=== PATIENT | male | born 1970 | race Caucasian/White ===

== ENCOUNTER → 2019-11-15 08:23 | Outpatient (BNVA) | payer MEDICARE, SELFPAY | PROVIDERS: Family Provider Family Medicine; PCP Family Medicine; Visit Provider Nurse Practitioner | DX: M47.817 Spondylosis without myelopathy or radiculopathy, lumbosacral region (principal); Z79.891 Long term (current) use of opiate analgesic | CPT/HCPCS: 99213 ==

== ENCOUNTER → 2019-12-11 11:25 | Outpatient (BNVA) | payer MEDICARE, SELFPAY | PROVIDERS: Family Provider Family Medicine; PCP Family Medicine; Visit Provider Nurse Practitioner Family | DX: N34.2 Other urethritis (principal) | CPT/HCPCS: 81003; 87491; 87591; 87661 ==

== ENCOUNTER → 2020-01-10 08:08 | Outpatient (BNVA) | payer MEDICARE, SELFPAY | PROVIDERS: Family Provider Family Medicine; PCP Family Medicine; Visit Provider Anesthesiology | DX: G89.29 Other chronic pain (principal); M47.817 Spondylosis without myelopathy or radiculopathy, lumbosacral region; Z79.891 Long term (current) use of opiate analgesic | CPT/HCPCS: 99213; 99214 ==

== ENCOUNTER → 2020-03-06 09:12 | Outpatient (BNVA) | payer MEDICARE, SELFPAY | PROVIDERS: Family Provider Family Medicine; PCP Nurse Practitioner; Visit Provider Nurse Practitioner | DX: G89.29 Other chronic pain (principal); M47.817 Spondylosis without myelopathy or radiculopathy, lumbosacral region; M54.9 Dorsalgia, unspecified; Z79.891 Long term (current) use of opiate analgesic | CPT/HCPCS: 99214 ==

== ENCOUNTER → 2020-04-06 08:01 | Outpatient (BNVA) | payer MEDICARE, SELFPAY | PROVIDERS: Family Provider Family Medicine; PCP Nurse Practitioner; Visit Provider Anesthesiology | DX: G89.29 Other chronic pain (principal); M47.817 Spondylosis without myelopathy or radiculopathy, lumbosacral region; M54.9 Dorsalgia, unspecified; Z79.891 Long term (current) use of opiate analgesic | CPT/HCPCS: 99213; 99214 ==

== ENCOUNTER → 2020-06-13 08:52 | Outpatient (BNVA) | payer MEDICARE, SELFPAY | PROVIDERS: Family Provider Family Medicine; PCP Nurse Practitioner; Visit Provider Anesthesiology | DX: G89.29 Other chronic pain (principal); M54.41 Lumbago with sciatica, right side; M54.42 Lumbago with sciatica, left side; M47.817 Spondylosis without myelopathy or radiculopathy, lumbosacral region; M54.9 Dorsalgia, unspecified; Z79.891 Long term (current) use of opiate analgesic | CPT/HCPCS: 99213; 99214 ==

== ENCOUNTER → 2020-08-10 09:10 | Outpatient (BNVA) | payer MEDICARE, SELFPAY | PROVIDERS: Family Provider Family Medicine; PCP Nurse Practitioner; Visit Provider Anesthesiology | DX: G89.29 Other chronic pain (principal); M47.817 Spondylosis without myelopathy or radiculopathy, lumbosacral region; M54.9 Dorsalgia, unspecified; Z79.891 Long term (current) use of opiate analgesic | CPT/HCPCS: 99213; 99214 ==

== ENCOUNTER → 2020-10-04 08:51 | Outpatient (BNVA) | payer MEDICARE, SELFPAY | PROVIDERS: Family Provider Family Medicine; PCP Nurse Practitioner; Visit Provider Nurse Practitioner | DX: G89.29 Other chronic pain (principal); M47.817 Spondylosis without myelopathy or radiculopathy, lumbosacral region; M54.9 Dorsalgia, unspecified; M54.2 Cervicalgia; F41.1 Generalized anxiety disorder; F43.0 Acute stress reaction; Z79.1 Long term (current) use of non-steroidal anti-inflammatories (NSAID); Z79.891 Long term (current) use of opiate analgesic | CPT/HCPCS: 99213 ==

== ENCOUNTER → 2020-12-13 08:34 | Outpatient (BNVA) | payer MEDICARE, SELFPAY | PROVIDERS: Family Provider Family Medicine; PCP Nurse Practitioner; Visit Provider Nurse Practitioner | DX: G89.29 Other chronic pain (principal); M47.817 Spondylosis without myelopathy or radiculopathy, lumbosacral region; M54.9 Dorsalgia, unspecified; F41.1 Generalized anxiety disorder; F43.0 Acute stress reaction; Z79.1 Long term (current) use of non-steroidal anti-inflammatories (NSAID); Z79.891 Long term (current) use of opiate analgesic | CPT/HCPCS: 99212; 99213 ==

== ENCOUNTER → 2021-02-12 10:26 | Outpatient (BNVA) | payer MEDICARE, SELFPAY | PROVIDERS: Family Provider Family Medicine; PCP Nurse Practitioner; Visit Provider Anesthesiology | DX: G89.29 Other chronic pain (principal); M47.817 Spondylosis without myelopathy or radiculopathy, lumbosacral region; M54.9 Dorsalgia, unspecified; Z79.1 Long term (current) use of non-steroidal anti-inflammatories (NSAID); Z79.891 Long term (current) use of opiate analgesic | CPT/HCPCS: 99213 ==

== ENCOUNTER → 2021-03-06 08:33 | Outpatient (BNVA) | payer MEDICARE, SELFPAY | PROVIDERS: Family Provider Family Medicine; PCP Nurse Practitioner; Visit Provider Anesthesiology | DX: G89.29 Other chronic pain (principal); M47.817 Spondylosis without myelopathy or radiculopathy, lumbosacral region; M54.9 Dorsalgia, unspecified; Z79.899 Other long term (current) drug therapy; Z79.891 Long term (current) use of opiate analgesic | CPT/HCPCS: 99213 ==

== ENCOUNTER → 2021-05-15 07:55 | Outpatient (BNVA) | payer MEDICARE, SELFPAY | PROVIDERS: Family Provider Family Medicine; PCP Nurse Practitioner; Visit Provider Nurse Practitioner | DX: G89.29 Other chronic pain (principal); M47.817 Spondylosis without myelopathy or radiculopathy, lumbosacral region; Z79.1 Long term (current) use of non-steroidal anti-inflammatories (NSAID); Z79.891 Long term (current) use of opiate analgesic | CPT/HCPCS: 99212; 99213 ==

== ENCOUNTER → 2021-07-10 07:55 | Outpatient (BNVA) | payer MEDICARE, SELFPAY | PROVIDERS: PCP Nurse Practitioner; Visit Provider Anesthesiology | DX: G89.29 Other chronic pain (principal); M47.817 Spondylosis without myelopathy or radiculopathy, lumbosacral region; Z79.891 Long term (current) use of opiate analgesic | CPT/HCPCS: 99213 ==

== ENCOUNTER → 2021-08-15 08:31 | Outpatient (BNVA) | payer MEDICARE, SELFPAY | PROVIDERS: PCP Nurse Practitioner; Visit Provider Urology | DX: R39.9 Unspecified symptoms and signs involving the genitourinary system (principal) | CPT/HCPCS: 81003 ==

== ENCOUNTER → 2021-09-11 13:10 | Outpatient (BNVA) | payer MEDICARE, SELFPAY | PROVIDERS: PCP Nurse Practitioner; Visit Provider Anesthesiology | DX: G89.29 Other chronic pain (principal); M47.817 Spondylosis without myelopathy or radiculopathy, lumbosacral region; Z79.899 Other long term (current) drug therapy; Z79.891 Long term (current) use of opiate analgesic; Z87.891 Personal history of nicotine dependence | CPT/HCPCS: 99213 ==

== ENCOUNTER → 2021-11-07 14:09 | Outpatient (BNVA) | payer MEDICARE, SELFPAY | PROVIDERS: PCP Nurse Practitioner; Visit Provider Anesthesiology | DX: G89.29 Other chronic pain (principal); M47.817 Spondylosis without myelopathy or radiculopathy, lumbosacral region; Z79.899 Other long term (current) drug therapy; Z79.891 Long term (current) use of opiate analgesic; Z87.891 Personal history of nicotine dependence | CPT/HCPCS: 99213 ==

== ENCOUNTER 2022-10-28 12:30 | Outpatient (CLI) | payer MEDICARE, SELFPAY | END 2022-10-28 12:31 | disposition home or self-care (01) | LOC: SLEEP 10-29 16:00 | PROVIDERS: PCP Nurse Practitioner; Visit Provider Physician Assistant | DX: G47.10 Hypersomnia, unspecified (principal) | CPT/HCPCS: G0399 ==

== ENCOUNTER 2025-05-12 22:17 | Emergency (ER) | payer MEDICARE, SELFPAY ==
--- OUTSIDE RECORDS SUMMARY | 2025-05-12 22:23 | XMS_ITS | Clinical Summary ---
Author Organization [facility] Andrew shearer Amanda Address [address] [place] [address] Phone Care Team Providers Care Sliver Machine Operator Name Role Phone Jeremiah Baker Primary Care Provider [phone] Allergies Active Allergy Reactions Criticality Noted Date Comments Doxycycline Itching Low 09/22/2018 Paroxetine Hcl Other (See Comments) High 09/22/2018 Made lymph nodes swell up Medications oxyCODONE IR (OXY-IR) 5 mg Capsule Take 10 mg by mouth every 6 hours as needed for Pain. Active traZODone (DESYREL) 50 mg tablet Take 75 mg by mouth daily at bedtime. Active sildenafil (VIAGRA) 25 mg tablet Take 25 mg by mouth 1 time daily as needed for Erectile Dysfunction. Active LORazepam (ATIVAN) 0.5 mg tablet Take 0.5 mg by mouth every 6 hours as needed for Anxiety. Active naproxen (NAPROSYN) 500 mg tablet Take 500 mg by mouth 2 times daily with meals. Active Active Problems Problem Noted Date Diagnosed Date Chronic back pain greater than 3 months duration 09/22/2018 Fibromyalgia 09/22/2018 Primary insomnia 09/22/2018 REGIS (generalized anxiety disorder) 09/22/2018 Social History Tobacco Use Types Packs/Day Years Used Date Smoking Tobacco: Former Cigarettes Q uit: 09/22/1998 Smokeless Tobacco: Never Sex and Gender Information Value Date Recorded Sex Assigned at Not on file Legal Sex Male 3:18 AM OUTSOLE PARAFFINER Gender Identity Not on file Sexual Orientation Not on file Last Filed Vital Signs Vital Sign Reading Time Taken Comments Blood Pressure 122/76 09/22/2018 1:00 PM OUTSOLE PARAFFINER Pulse 82 09/22/2018 1:00 PM OUTSOLE PARAFFINER Temperature 36.8 C (98.2 F) 09/22/2018 1:00 PM OUTSOLE PARAFFINER Respiratory Rate - - Oxygen Saturation - - Inhaled Oxygen Concentration - - Weight 81.2 kg (179 lb) 09/22/2018 1:00 PM OUTSOLE PARAFFINER Height 172.7 cm (5' 8 ) 09/22/2018 1:00 PM OUTSOLE PARAFFINER Body Mass Index 27.22 09/22/2018 1:00 PM OUTSOLE PARAFFINER Plan of Treatment Health Maintenance Due Date Last Done Comments DTAP/TDAP/TD VACCINES (1 - Tdap) 1987 HEPATITIS B VACCINES (1 of 3 - 19+ 3-dose series) 04/20 COLORECTAL SCREENING 2013 Colorectal Cancer Screening 2013 FIT-DNA Q 3 years 2013 FIT/FOBT Q 1 year 2013 Flex Sig/CT Colonography Q 5 years 2013 ZOSTER VACCINE (1 of 2) 2018 INFLUENZA VACCINE (#1) 2025 Care Teams Sliver Machine Operator Relationship Specialty Start Date End Date Jeremiah Baker DO [address] [address] PCP - General Family Practice 09/22/18
--- OUTSIDE RECORDS SUMMARY | 2025-05-12 22:23 | XMS_ITS | Encounter Summary ---
Author Organization [facility] Address [address] [place] [address] Care Team Providers Care Communications Instructor Name Role Phone Jeremiah Baker DO Primary Care Provider [phone]- [phone] Encounter Details Date Type Department Care Team (Latest Contact Info) Description 03/26/2001 Outpatient Historical [facility] Axel Woodward NO ADDRESS ON FILE Contusion of unspecified part of lower limb (Primary Dx); Changes in skin texture Social History Tobacco Use Types Packs/Day Years Used Date Smoking Tobacco: Never Assessed Sex and Gender Information Value Date Recorded Sex Assigned at Not on file Legal Sex Male 3:18 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
--- OUTSIDE RECORDS SUMMARY | 2025-05-12 22:23 | XMS_ITS | Encounter Summary ---
Author Organization [facility] Address [address] [facility] Attn: Epic Prelude ADT [place] [address] Care Team Providers Care Tarring Machine Operator Name Role Phone Jeremiah Baker DO Primary Care Provider [phone] Encounter Details Date Type Department Care Team (Late st Contact Info) Description 11/19/2000 Outpatient Historical Jeremiah Sharma MD NO ADDRESS ON FILE Social History Tobacco Use Types Packs/Day Years Used Date Smoking Tobacco: Never Assessed Sex and Gender Information Value Date Recorded Sex Assigned at Not on file Legal Sex Male 3:18 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
--- OUTSIDE RECORDS SUMMARY | 2025-05-12 22:23 | XMS_ITS | Encounter Summary ---
[facility] Organization [facility] Address [address] [facility] Attn: [place] [address] Care Team Providers Care Stars Specialist Name Role Phone Jeremiah Baker DO Primary Care Provider [phone] Encounter Details Date Type Department Care Team (Late st Contact Info) Description 07/08/2001 Outpatient Historical Scot Miller MD [address] [place] [id number] Social History Tobacco Use Types Packs/Day Years Used Date Smoking Tobacco: Never Assessed Sex and Gender Information Value Date Recorded Sex Assigned at Not on file Legal Sex Male 3:18 AM PUBLICATION DIRECTOR Gender Identity Not on file Sexual Orientation Not on file documented as of this encounter Plan of Treatment Not on file documented as of this encounter Visit Diagnoses Not on filedocumented in this encounter Care Teams Stars Specialist Relationship Specialty Start Date End Date Jeremiah Baker DO [address] [address] PCP - General Family Practice 09/22/18 documented as of this encounter
--- OUTSIDE RECORDS SUMMARY | 2025-05-12 22:23 | XMS_ITS | Encounter Summary ---
Author Organization [facility] Address [address] [place] [address] Care Team Providers Care Vacuum Tester Cans Name Role Phone Jeremiah Baker DO Primary Care Provider [phone] Encounter Details Date Type Department Care Team (Latest Contact Info) Description 07/08/2001 Outpatient Historical [facility] Scot Miller MD [address] [place] [address] Edema (Primary Dx); Personal history of endocrine, metabolic, and immunity disorders; Personal history of injury, presenting hazards to health Social History Tobacco Use Types Packs/Day Years Used Date Smoking Tobacco: Never Assessed Sex and Gender Information Value Date Recorded Sex Assigned at Not on file Legal Sex Male 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
--- OUTSIDE RECORDS SUMMARY | 2025-05-12 22:23 | XMS_ITS | Clinical Summary ---
Author Organization [employer] Address [address] [facility] Attn: Epic Prelude ADT [place] [address] Care Team Providers Care Film Sound Coordinator Name Role Phone [place] Jeremiah Quinones DO Primary Care Provider [phone] Allergies Active Allergy Reactions Criticality Noted Date Comments Doxycycline Itching Low 09/22/2018 Paroxetine Hcl Other (See Comments) High 09/22/2018 Made lymph nodes swell up Medications LORazepam (ATIVAN) 0.5 mg tablet Take 0.5 mg by mouth every 6 hours as needed for Anxiety. 09/22/2018 Active oxyCODONE IR (OXY-IR) 5 mg Capsule Take 10 mg by mouth every 6 hours as needed for Pain. 09/22/2018 Active sildenafiL (VIAGRA) 25 mg tablet Take 25 mg by mouth 1 time daily as needed for Erectile Dysfunction. 09/22/2018 Active traZODone (DESYREL) 50 mg tablet Take 75 mg by mouth daily at bedtime. 09/22/2018 Active naproxen (NAPROSYN) 500 mg tablet Take 500 mg by mouth 2 times daily with meals. 09/22/2018 Active Active Problems Problem Noted Date Diagnosed Date Chronic back pain greater than 3 months duration 09/22/2018 Primary insomnia 09/22/2018 Fibromyalgia 09/22/2018 REGIS (generalized anxiety disorder) 09/22/2018 Social History Tobacco Use Types Packs/Day Years Used Date Smoking Tobacco: Former Cigarettes Q uit: 09/22/1998 Smokeless Tobacco: Never Sex and Gender Information Value Date Recorded Sex Assigned at Not on file Legal Sex Male 1:45 PM MACHINE ROOM ENGINEER Gender Identity Not on file Sexual Orientation Not on file Last Filed Vital Signs Vital Sign Reading Time Taken Comments Blood Pressure 122/76 09/22/2018 1:00 PM MACHINE ROOM ENGINEER Pulse 82 09/22/2018 1:00 PM MACHINE ROOM ENGINEER Temperature 36.8 C (98.2 F) 09/22/2018 1:00 PM MACHINE ROOM ENGINEER Respiratory Rate - - Oxygen Saturation - - Inhaled Oxygen Concentration - - Weight 81.2 kg (179 lb) 09/22/2018 1:00 PM MACHINE ROOM ENGINEER Height 172.7 cm (5' 8 ) 09/22/2018 1:00 PM MACHINE ROOM ENGINEER Body Mass Index 27.22 09/22/2018 1:00 PM MACHINE ROOM ENGINEER Plan of Treatment Health Maintenance Due Date Last Done Comments DTAP/TDAP/TD VACCINES (1 - Tdap) 1987 HEPATITIS B VACCINES (1 of 3 - 19+ 3-dose series) 04/20 COLORECTAL SCREENING 2013 Colorectal Cancer Screening 2013 FIT-DNA Q 3 years 2013 FIT/FOBT Q 1 year 2013 Flex Sig/CT Colonography Q 5 years 2013 ZOSTER VACCINE (1 of 2) 2018 INFLUENZA VACCINE (#1) 2025 Care Teams Film Sound Coordinator Relationship Specialty Start Date End Date Jeremiah Baker DO [address] [address] PCP - General Family Practice 09/22/18
--- OUTSIDE RECORDS SUMMARY | 2025-05-12 22:23 | XMS_ITS | Encounter Summary ---
Author Organization [facility] Address [address] [place] [address] Care Team Providers Care Steno Typist Name Role Phone Jeremiah Baker DO Primary Care Provider [phone] Encounter Details Date Type Department Care Team (Latest Contact Info) Description 10/26/2000 Outpatient Historical [facility] Scot Miller MD [address] [place] [address] Lumbago (Primary Dx); Simple or unspecified chronic serous otitis media; Dyspepsia and other specified disorders of function of stomach Social History Tobacco Use Types Packs/Day Years Used Date Smoking Tobacco: Never Assessed Sex and Gender Information Value Date Recorded Sex Assigned at Not on file Legal Sex Male 3:18 AM DIRECTOR TRAFFIC AND PLANNING Gender Identity Not on file Sexual Orientation Not on file documented as of this encounter Plan of Treatment Not on file documented as of this encounter Visit Diagnoses Diagnosis Lumbago- Primary Simple or unspecified chronic serous otitis media Dyspepsia and other specified disorders of function of stomach documented in this encounter Care Teams Steno Typist Relationship Specialty Start Date End Date Jeremiah Baker DO [address] [place] [phone] PCP - General Family Practice 09/22/18 documented as of this encounter
--- OUTSIDE RECORDS SUMMARY | 2025-05-12 22:23 | XMS_ITS | Patient Health Record ---
Author Organization [facility] Address [address] [place] [address] Care Team Providers Care Enterprise Business Architect Name Role Phone Ashley Chapa Primary Care Provider UnavailEdilberto Sutherland Unavailable [phone] Violet Warren Unavailable Unavailable Migration, Provider Unavailable Unavailable Anahi Melchor Unavailable [phone] Allergies Allergen (clinical drug ingredient) Drug/Non Drug Allergy documented on EMR Reaction Allergy Type Onset Date Status paroxetine Paxil Unknown Drug Allergy Active doxycycline Doxycycline Unknown Drug Allergy Act bari Results Component Value Reference Range Flag Notes Urine Drug Screen (cup read) - 62051 Reviewed date:04/19/2025 10:05:02 AM Interpretation: Performing Lab: Notes/Report: OPI + OXY + Urine Confirmation Panel (in strument) - [id number] Reviewed date:04/27/2025 01:56:33 PM Interpretation: Performing Lab: Notes/Report: 6-Acetylmorphine 0 <6 ng/mL N This carola t was developed and its performance characteristics determined by [facility]. It has not been cleared or approved by the U.S. Food and Drug Administration. 7-Aminoclonazepam 0 <60 ng/mL N This te st was developed and its performance characteristics determined by [facility]. It has not been cleared or approved by the U.S. Food and Drug Administration. Alprazolam 0 <60 ng/mL N This test was developed and its performance characteristics determined by [facility]. It has not been cleared or approved by the U.S. Food and Drug Administration. Amphetamine 0 <75 ng/mL N This test was developed and its performance characteristics determined by [facility]. It has not been cleared or approved by the U.S. Food and Drug Administration. aOH-Alprazolam 0 <60 ng/mL N This test was developed and its performance characteristics determined by [facility]. It has not been cleared or approved by the U.S. Food and Drug Administration. Buprenorphine 0.0 <7.5 ng/mL N This test w as developed and its performance characteristics determined by [facility]. It has not been cleared or approved by the U.S. Food and Drug Administration. Norbuprenorphine 0.0 <37.5 ng/mL N This te st was developed and its performance characteristics determined by [facility]. It has not been cleared or approved by the U.S. Food and Drug Administration. Carisoprodol 0 <75 ng/mL N This test wa s developed and its performance characteristics determined by [facility]. It has not been cleared or approved by the U.S. Food and Drug Administration. Codeine 0 <75 ng/mL N This test was developed and its performance characteristics determined by [facility]. It has not been cleared or approved by the U.S. Food and Drug Administration. EDDP 0 <75 ng/mL N This test was developed and its performance characteristics determined by [facility]. It has not been cleared or approved by the U.S. Food and Drug Administration. Fentanyl 0 <6 ng/mL N This test was developed and its performance characteristics determined by [facility]. It has not been cleared or approved by the U.S. Food and Drug Administration. Hydrocodone 3528 <75 ng/mL H This test was developed and its performance characteristics determined by [facility]. It has not been cleared or approved by the U.S. Food and Drug Administration. Hydromorphone 632 <75 ng/mL H This test w as developed and its performance characteristics determined by [facility]. It has not been cleared or approved by the U.S. Food and Drug Administration. Lorazepam 0 <60 ng/mL N This test was developed and its performance characteristics determined by [facility]. It has not been cleared or approved by the U.S. Food and Drug Administration. MDMA 0 <75 ng/mL N This test was developed and its performance characteristics determined by [facility]. It has not been cleared or approved by the U.S. Food and Drug Administration. Meperidine 0.0 <37.5 ng/mL N This test was developed and its performance characteristics determined by [facility]. It has not been cleared or approved by the U.S. Food and Drug Administration. Meprobamate 0 <75 ng/mL N This test was developed and its performance characteristics determined by [facility]. It has not been cleared or approved by the U.S. Food and Drug Administration. Methamphetamine 8 <75 ng/mL N This test was developed and its performance characteristics determined by [facility]. It has not been cleared or approved by the U.S. Food and Drug Administration. Methadone 0 <75 ng/mL N This test was developed and its performance characteristics determined by [facility]. It has not been cleared or approved by the U.S. Food and Drug Administration. Morphine 0 <75 ng/mL N This test was developed and its performance characteristics determined by [facility]. It has not been cleared or approved by the U.S. Food and Drug Administration. Nordiazepam 0 <60 ng/mL N This test was developed and its performance characteristics determined by [facility]. It has not been cleared or approved by the U.S. Food and Drug Administration. Norfentanyl 0 <6 ng/mL N This test was developed and its performance characteristics determined by [facility]. It has not been cleared or approved by the U.S. Food and Drug Administration. Normeperidine 0.0 <37.5 ng/mL N This test was developed and its performance characteristics determined by [facility]. It has not been cleared or approved by the U.S. Food and Drug Administration. O-desmethyltramadol 0 <75 ng/mL N This test was developed and its performance characteristics determined by [facility]. It has not been cleared or approved by the U.S. Food and Drug Administration. Oxazepam 0 <60 ng/mL N This test was developed and its performance characteristics determined by [facility]. It has not been cleared or approved by the U.S. Food and Drug Administration. Oxycodone 0.0 <37.5 ng/mL N This test was developed and its performance characteristics determined by [facility]. It has not been cleared or approved by the U.S. Food and Drug Administration. Oxymorphone 0 <75 ng/mL N This test was developed and its performance characteristics determined by [facility]. It has not been cleared or approved by the U.S. Food and Drug Administration. Phencyclidine 0.0 <7.5 ng/mL N This test w as developed and its performance characteristics determined by [facility]. It has not been cleared or approved by the U.S. Food and Drug Administration. Tapentadol 5.2 <37.5 ng/mL N This test was developed and its performance characteristics determined by [facility]. It has not been cleared or approved by the U.S. Food and Drug Administration. Temazepam 0 <60 ng/mL N This test was developed and its performance characteristics determined by [facility]. It has not been cleared or approved by the U.S. Food and Drug Administration. Tramadol 0 <75 ng/mL N This test was developed and its performance characteristics determined by [facility]. It has not been cleared or approved by the U.S. Food and Drug Administration. Norhydrocodone >5000 <75 ng/mL > This test was developed and its performance characteristics determined by [facility]. It has not been cleared or approved by the U.S. Food and Drug Administration. Noroxycodone 0 <38 ng/mL N This test wa s developed and its performance characteristics determined by [facility]. It has not been cleared or approved by the U.S. Food and Drug Administration. Pregabalin 0 <225 ng/mL N This test was developed and its performance characteristics determined by [facility]. It has not been cleared or approved by the U.S. Food and Drug Administration. Gabapentin 0 <225 ng/mL N This test was developed and its performance characteristics determined by [facility]. It has not been cleared or approved by the U.S. Food and Drug Administration. Benzoylecgonine 0.0 <37.5 ng/mL N This carola t was developed and its performance characteristics determined by [facility]. It has not been cleared or approved by the U.S. Food and Drug Administration. 4-Hydroxy Xylazine 0 <25 ng/mL N This t est was developed and its performance characteristics determined by [facility]. It has not been cleared or approved by the U.S. Food and Drug Administration. Tox Results Reviewed date:04/27/2025 01:56:58 PM Interpretation: Performing Lab: Notes/Report: Urine Drug Screen (cup read) - 64821 Reviewed date:10/06/2024 11:37:21 AM Interpretation: Performing Lab: Notes/Report: OPI + Urine Confirmation Panel (in strument) - [id number] Reviewed date:02/03/2025 03:18:35 PM Interpretation: Performing Lab: Notes/Report: 6-Acetylmorphine 0 <6 ng/mL N This carola t was developed and its performance characteristics determined by [facility]. It has not been cleared or approved by the U.S. Food and Drug Administration. 7-Aminoclonazepam 0 <60 ng/mL N This te st was developed and its performance characteristics determined by [facility]. It has not been cleared or approved by the U.S. Food and Drug Administration. Alprazolam 0 <60 ng/mL N This test was developed and its performance characteristics determined by [facility]. It has not been cleared or approved by the U.S. Food and Drug Administration. Amphetamine 0 <75 ng/mL N This test was developed and its performance characteristics determined by [facility]. It has not been cleared or approved by the U.S. Food and Drug Administration. aOH-Alprazolam 0 <60 ng/mL N This test was developed and its performance characteristics determined by [facility]. It has not been cleared or approved by the U.S. Food and Drug Administration. Buprenorphine 0.0 <7.5 ng/mL N This test w as developed and its performance characteristics determined by [facility]. It has not been cleared or approved by the U.S. Food and Drug Administration. Norbuprenorphine 0.0 <37.5 ng/mL N This te st was developed and its performance characteristics determined by [facility]. It has not been cleared or approved by the U.S. Food and Drug Administration. Carisoprodol 0 <75 ng/mL N This test wa s developed and its performance characteristics determined by [facility]. It has not been cleared or approved by the U.S. Food and Drug Administration. Codeine 0 <75 ng/mL N This test was developed and its performance characteristics determined by [facility]. It has not been cleared or approved by the U.S. Food and Drug Administration. EDDP 0 <75 ng/mL N This test was developed and its performance characteristics determined by [facility]. It has not been cleared or approved by the U.S. Food and Drug Administration. Fentanyl 0 <6 ng/mL N This test was developed and its performance characteristics determined by [facility]. It has not been cleared or approved by the U.S. Food and Drug Administration. Hydrocodone 1636 <75 ng/mL H This test was developed and its performance characteristics determined by [facility]. It has not been cleared or approved by the U.S. Food and Drug Administration. Hydromorphone 837 <75 ng/mL H This test w as developed and its performance characteristics determined by [facility]. It has not been cleared or approved by the U.S. Food and Drug Administration. Lorazepam 0 <60 ng/mL N This test was developed and its performance characteristics determined by [facility]. It has not been cleared or approved by the U.S. Food and Drug Administration. MDMA 0 <75 ng/mL N This test was developed and its performance characteristics determined by [facility]. It has not been cleared or approved by the U.S. Food and Drug Administration. Meperidine 0.0 <37.5 ng/mL N This test was developed and its performance characteristics determined by [facility]. It has not been cleared or approved by the U.S. Food and Drug Administration. Meprobamate 0 <75 ng/mL N This test was developed and its performance characteristics determined by [facility]. It has not been cleared or approved by the U.S. Food and Drug Administration. Methamphetamine 0 <75 ng/mL N This test was developed and its performance characteristics determined by [facility]. It has not been cleared or approved by the U.S. Food and Drug Administration. Methadone 2 <75 ng/mL N This test was developed and its performance characteristics determined by [facility]. It has not been cleared or approved by the U.S. Food and Drug Administration. Morphine 0 <75 ng/mL N This test was developed and its performance characteristics determined by [facility]. It has not been cleared or approved by the U.S. Food and Drug Administration. Nordiazepam 0 <60 ng/mL N This test was developed and its performance characteristics determined by [facility]. It has not been cleared or approved by the U.S. Food and Drug Administration. Norfentanyl 0 <6 ng/mL N This test was developed and its performance characteristics determined by [facility]. It has not been cleared or approved by the U.S. Food and Drug Administration. Normeperidine 0.0 <37.5 ng/mL N This test was developed and its performance characteristics determined by [facility]. It has not been cleared or approved by the U.S. Food and Drug Administration. O-desmethyltramadol 0 <75 ng/mL N This test was developed and its performance characteristics determined by [facility]. It has not been cleared or approved by the U.S. Food and Drug Administration. Oxazepam 0 <60 ng/mL N This test was developed and its performance characteristics determined by [facility]. It has not been cleared or approved by the U.S. Food and Drug Administration. Oxycodone 0.0 <37.5 ng/mL N This test was developed and its performance characteristics determined by [facility]. It has not been cleared or approved by the U.S. Food and Drug Administration. Oxymorphone 0 <75 ng/mL N This test was developed and its performance characteristics determined by [facility]. It has not been cleared or approved by the U.S. Food and Drug Administration. Phencyclidine 0.0 <7.5 ng/mL N This test w as developed and its performance characteristics determined by [facility]. It has not been cleared or approved by the U.S. Food and Drug Administration. Tapentadol 0.0 <37.5 ng/mL N This test was developed and its performance characteristics determined by [facility]. It has not been cleared or approved by the U.S. Food and Drug Administration. Temazepam 0 <60 ng/mL N This test was developed and its performance characteristics determined by [facility]. It has not been cleared or approved by the U.S. Food and Drug Administration. Tramadol 6 <75 ng/mL N This test was developed and its performance characteristics determined by [facility]. It has not been cleared or approved by the U.S. Food and Drug Administration. Norhydrocodone 2213 <75 ng/mL H This test was developed and its performance characteristics determined by [facility]. It has not been cleared or approved by the U.S. Food and Drug Administration. Noroxycodone 0 <38 ng/mL N This test wa s developed and its performance characteristics determined by [facility]. It has not been cleared or approved by the U.S. Food and Drug Administration. Pregabalin 0 <225 ng/mL N This test was developed and its performance characteristics determined by [facility]. It has not been cleared or approved by the U.S. Food and Drug Administration. Gabapentin 0 <225 ng/mL N This test was developed and its performance characteristics determined by [facility]. It has not been cleared or approved by the U.S. Food and Drug Administration. Benzoylecgonine 0.0 <37.5 ng/mL N This carola t was developed and its performance characteristics determined by [facility]. It has not been cleared or approved by the U.S. Food and Drug Administration. 4-Hydroxy Xylazine 0 <25 ng/mL N This t est was developed and its performance characteristics determined by [facility]. It has not been cleared or approved by the U.S. Food and Drug Administration. Tox Results Reviewed date:12/20/2024 11:35:57 AM Interpretation: Performing Lab: Notes/Report: Reason For Referral No Information Medications Medication SIG (Take, Route, Frequency, Duration) Notes Start Date End Date Status Nystatin 202742 UNIT/GM Powder 1 application Externally Twice a day; Duration: 10 days 12/21/2019 Unknown Naproxen *Pick strength-form from [facility] for eRX* Unknown LORazepam *Pick strength-form from [facility] for eRX* Unknown Cefdinir Unknown Bactrim DS 800-160 MG Tablet 1 tablet Orally Twice a day; Duration: 14 days 12/28/2019 Unknown HYDROcodone-Acetami nophen 7.5-325 MG Tablet 1 tablet Orally every 6 hrs; Duration: 30 days As needed not to exceed 4 per day May fill on 8-04/19/2025 06/21/2025 Active traZODone HCl Unknow n oxyCODONE HCl Unknow n HYDROcodone-Acetami nophen 7.5-325 MG Tablet 1 tablet Orally every 6 hrs; Duration: 30 days As needed not to exceed 4 per day May fill on 04-22-2025 04/19/2025 05/22/2025 Active Diclofenac Sodium 1 % Gel as directed Externally 3 times a day; Duration: 30 days 04/19/2025 05/19/2025 Active Immunizations Vaccine Route Administration Date Status Comme nts Influenza (split), seasonal, intradermal, preservative free Unknown 12/21/2019 Refused Social History Tobacco Use: Social History Observation Description Date Details (start date - stop date) Former Smoker NA - NA Social History Depression Screening Social Info Question Answer Notes PHQ-9 Little interest or pleasure in doing thin gs Not at all Feeling down, depressed, or hopeless Not at all Trouble falling or staying asleep, or sleeping t oo much Nearly every day Feeling tired or having little energy More than half the days Poor appetite or overeating Not at all Feeling bad about yourself, or that you are a failure, or have let yourself or your family down Not at all Trouble concentrating on thi ngs, such as reading the newspaper or watching television Not at all Moving or speaking so slowly that other people could have noticed. Or the opposite ? being so fidgety or restless that you have been moving around a lot more than usual Not at all Thoughts that you would be b dallin off , or of hurting yourself in some way Not at all Total Score 5 Interpretation Mild Depression Tobacco Use: Social Info Question Answer Notes xTobacco Use/Smoking Are you a former smoker How long has it been since you last smoked? > 10 years Additional Details Category Social Info Options Details Migrated Social History Migrated Social History Alcoholic beverages? - No, Currently on disability? - Yes, Drug or substance abuse? - No, Education - Grade School, exposure to toxins/poisonous substances at work - No, Involved in any legal proceedings or lawsuits? - No, Marital Status - , Nonprescription drug use? - No, Participation in detoxification or rehabilitation - No, Smoking - No, Working currently? - No Problems Problem Type SNOMED Code ICD Code Onset Dates Problem Status W/U Status Risk Notes Problem Chronic pain syndrome (335055072) Chronic pain syndrome (G89.4) Active confirmed Problem Acquired spondylolisthesis (369530539) Spondylolisthesi s, lumbosacral region (M43.17) Active confirmed Problem Lumbosacral spondylosis without myelopathy (99167437) Other spondylosis with radiculopathy, lumbosacral region (M47.27) Active confirmed Problem Degeneration of lumbar intervertebral disc (25366144) Other intervertebral disc degeneration, lumbar region (M51.36) Active confirmed Problem Balanitis (81609508) Balanitis (N48.1) Active confirmed Problem Abnormal gait (26167419) Unspecified abnormalities of gait and mobility (R26.9) Active confirmed Problem High risk drug monitoring status (264605876) FDC (current) use of opiate analgesic (Z79.891) Active confirmed Problem Carpal tunnel syndrome (28211438) Carpal tunnel syndrome, bilateral upper limbs (G56.03) 024 Active confirmed Problem Back pain (151547810) Back pain (724.5) 018 Active confirmed [id number] 911- Problem Anemia (951427564) Anemia, unspecified (285.9) 018 Problem resolved confirmed [id number] 911- Problem Screening for cardiovascular system disease (procedure) (737016485) Screening for cardiovascular conditions (V81.2) 018 Problem resolved confirmed [id number] 911- Problem Insomnia (033804807) Insomnia (307.41) 018 Problem resolved confirmed [id number] 911- Vital Signs Height-cm 172.72 cm 04/19/2025 Weight-kg 89.81 kg 04/19/2025 Height 68.00 in 04/19/2025 Weight 198 lbs 04/19/2025 BMI 30.1 kg/m2 04/19/2025 Encounters Encounter Location Date Provider Diagnosis [facility] [address] [address] 06/16/2024 Anahi Melchor [facility] [address] [address] 06/22/2024 Edilberto Decker [facility] [address] [address] 08/18/2024 Anahi Melchor [facility] [address] [address] 10/06/2024 Anahi Melchor Chronic pain syndrom e G89.4 ; Carpal tunnel syndrome, bilateral upper limbs G56.03 ; Degeneration of intervertebral disc of lumbar region with discogenic back pain M51.360 ; Other spondylosis with radiculopathy, lumbosacral region M47.27 ; Spondylolisthesis, lumbosacral region M43.17 ; Unspecified abnormalities of gait and mobility R26.9 and FDC (current) use of opiate analgesic Z79.891 [facility] [address] [address] 12/14/2024 Edilberto Danielsfft Chronic pain syndrom e G89.4 ; Carpal tunnel syndrome, bilateral upper limbs G56.03 ; Degeneration of intervertebral disc of lumbar region with discogenic back pain M51.360 ; Other spondylosis with radiculopathy, lumbosacral region M47.27 ; Spondylolisthesis, lumbosacral region M43.17 ; Unspecified abnormalities of gait and mobility R26.9 and 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 Z79.891 [facility] [address] [address] 02/08/2025 Edilberto Danielsfft Chronic pain syndrom e G89.4 ; Carpal tunnel syndrome, bilateral upper limbs G56.03 ; Degeneration of intervertebral disc of lumbar region with discogenic back pain M51.360 ; Other spondylosis with radiculopathy, lumbosacral region M47.27 ; Spondylolisthesis, lumbosacral region M43.17 ; Unspecified abnormalities of gait and mobility R26.9 ; 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 Z79.891 and Depression screen Z13.31 [facility] [address] [address] 04/19/2025 Edilberto Danielsfft Chronic pain syndrom e G89.4 ; Carpal tunnel syndrome, bilateral upper limbs G56.03 ; Degeneration of intervertebral disc of lumbar region with discogenic back pain M51.360 ; Other spondylosis with radiculopathy, lumbosacral region M47.27 ; Spondylolisthesis, lumbosacral region M43.17 ; Unspecified abnormalities of gait and mobility R26.9 ; FDC (current) use of opiate analgesic Z79.891 and Depression screen Z13.31 [facility] 0 0 08/13/2024 Provider Migration [facility] 0 0 08/14/2024 Provider Migration [facility] [facility] [address] [place] [address] 10/06/2024 Edilberto Decker [facility] [address] [place], [place] [address] 11/21/2024 Edilberto Decker Spondylolisthesis, lumbosacral region M43.17 Assessments Encounter Date Diagnosis (ICD Code) Assessment Notes Treatment Notes Treatment Clinical Notes Section Notes 10/06/2024 Chronic pain syndrome (ICD-10 - G89.4) I had a nice discussion with the patient today regarding his chronic pain complaints. He is doing reasonably well on his current medication regimen. He does state when the colder weather for started moving and he had a flareup of his fibromyalgia but feels it is calm back down now. He continues with lower back pain but feels it is reasonably stable with the help of his medication. He defers any sort of interventional procedures or any updated advanced imaging. He will continue his medication at present level and return to clinic in 2 months to monitor for treatment effectiveness and compliance. 10/06/2024 Carpal tunnel syndrome, bilateral upper limbs (ICD-10 - G56.03) 12/14/2024 Chronic pain syndrome (ICD-10 - G89.4) I had a nice visit with the patient today regarding his chronic pain issues. Overall, he sounds like he's been doing alright. He has been doing some work and staying busy. He denies any new problems or issues and says the medications remain effective His pill counts and drug screens are consistent with his history as well. We will plan to follow up with him in about 2 months unless he needs something sooner. 02/08/2025 Chronic pain syndrome (ICD-10 - G89.4) I had a nice visit with the patient today regarding his chronic pain issues. He feels like he's getting worse with his radicular lumbar symptoms on that left side, mainly L4-5 distribution. He completed a lumbar epidural steroid injection a couple of years ago, but, he really doesn't feel like that made any difference. Looking back it has been just over 3 years since his last lumbar MRI, so we will get updated imaging and review that at his next visit. We did increase his strength on the hydrocodone so hopefully that gives him some better relief. We will see him back in about 2 months. Order lumbar MRI 04/19/2025 Chronic pain syndrome (ICD-10 - G89.4) I had a nice discussion with the patient today regarding his chronic pain issues. Overall, he's been doing reasonably well. His granddaughter had surgery recently, so he has been dealing with the stress from that. Otherwise, he denies any new problems or issues, so at this point, we will just continue his medications unchanged and see him back in about 2 months and proceed accordingly. 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) 02/08/2025 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) 04/19/2025 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) 04/19/2025 Other spondylosis with radiculopathy, lumbosacral region (ICD-10 - M47.27) 02/08/2025 Other spondylosis with radiculopathy, lumbosacral region (ICD-10 - M47.27) 12/14/2024 Other spondylosis with radiculopathy, lumbosacral region (ICD-10 - M47.27) 10/06/2024 Spondylolisthesis, lumbosacral region (ICD-10 - M43.17) 12/14/2024 Spondylolisthesis, lumbosacral region (ICD-10 - M43.17) 10/06/2024 Unspecified abnormalities of gait and mobility (ICD-10 - R26.9) 02/08/2025 Spondylolisthesis, lumbosacral region (ICD-10 - M43.17) 04/19/2025 Spondylolisthesis, lumbosacral region (ICD-10 - M43.17) 04/19/2025 Unspecified abnormalities of gait and mobility (ICD-10 - R26.9) 02/08/2025 Unspecified abnormalities of gait and mobility (ICD-10 - R26.9) 10/06/2024 [facility] (current) use of opiate analgesic (ICD-10 - Z79.891) 12/14/2024 Unspecified abnormalities of gait and mobility (ICD-10 - R26.9) 12/14/2024 [facility] (current) use of opiate analgesic (ICD-10 - Z79.891) RECOMMEND URINE TESTING TODAY Urine drug screening will be performed today to monitor compliance with opioid therapy or to serve as a baseline screen for a patient who may be a candidate for opioid therapy in the future, pending UDS results. We will monitor with in-office testing (rapid testing) today and review the results prior to dispensing prescription. All positive results will be sent for quantitative analysis to ensure accuracy and quantify amounts. Any expected positive results that return negative will also be sent for quantitative analysis. Any questionable read or any medication we cannot test for in the office confidently will be sent for quantitative analysis, as well. Patient has been made aware of this policy and agrees to abide by our urine testing policy. 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 We will monitor with in-office testing (rapid testing) today and review the results prior to dispensing prescription. All positive results will be sent for quantitative analysis to ensure accuracy and quantify amounts. Any expected positive results that return negative will also be sent for quantitative analysis. Any questionable read or any medication we cannot test for in the office confidently will be sent for quantitative analysis, as well. Patient has been made aware of this policy and agrees to abide by our urine testing policy. 04/19/2025 Depression screen (ICD-10 - Z13.31) 02/08/2025 Depression screen (ICD-10 - Z13.31) 12/14/2024 Other Alex Beltran am scribing for Dr. Edilberto Decker. I, Dr. Edilberto Decker, personally performed the services described in this documentation, as scribed by Alex Preciado, and it is both accurate and complete. 02/08/2025 Other Maya Beltran am scribing for Dr. Edilberto Decker. I, Dr. Edilberto Decker, personally performed the services described in this documentation, as scribed by Maya Erazo, and it is both accurate and complete. 04/19/2025 Other Maya Beltran [facility], am scribing for Dr. Edilberto Decker. I, Dr. Edilberto Decker, personally performed the services described in this documentation, as scribed by ROSHAN Roman, and it is both accurate and complete. Plan Of Treatment Future Test Test Name Order Date MRI Lumbar Spine w/o [id number] 02/09/20 Next Appt Details Provider Name:Anahimary kate johnson, 06/22/2025 03:20:00 PM, [address] [place], [address], Insurance Providers Payer Name Payer Address Payer Phone Subscriber Number Group Number Insured Name Patient Relationship to Insured Coverage Start Date Coverage End Date BS [place] [employer] [address] [place] [address] [id number] Herson Andrade Self - patient is the insured Medical (General) History Medical History History ICD Code Headache, migraine constipation fibromyalgia anxiety Surgical History Surgery Date(Month/Year) left leg right shoulder Rotator Cuff Surgery - Dr. owens
--- OUTSIDE RECORDS SUMMARY | 2025-05-12 22:23 | XMS_ITS | Encounter Summary ---
Author Organization [employer] [facility] Address [address] [place] [address] Care Team Providers Care Physicians Assistant Name Role Phone Jeremiah Baker DO Primary Care Provider [phone] Encounter Details Date Type Department Care Team (Latest Contact Info) Description 08/18/2001 Outpatient Historical [facility] Scot Miller MD [address] [place] [address] BRONCHITIS NOS (Primary Dx); HYPERLIPIDEMIA NEC/NOS; DERMATITIS NOS Social History Tobacco Use Types Packs/Day Years Used Date Smoking Tobacco: Never Assessed Sex and Gender Information Value Date Recorded Sex Assigned at Not on file 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
--- OUTSIDE RECORDS SUMMARY | 2025-05-12 22:23 | XMS_ITS | Encounter Summary ---
Author Organization [email or web address] Address [address] [place] [address] Care Team Providers Care Sales Operations Coordinator Name Role Phone Jeremiah Baker DO Primary Care Provider [phone] Encounter Details Date Type Department Care Team (Latest Contact Info) Description 11/25/2000 Outpatient Historical [facility] Scot Miller MD [address] [place] [address] Bronchitis, not specified as acute or chronic (Primary Dx) Social History Tobacco Use Types Packs/Day Years Used Date Smoking Tobacco: Never Assessed Sex and Gender Information Value Date Recorded Sex Assigned at Not on file 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
--- OUTSIDE RECORDS SUMMARY | 2025-05-12 22:23 | XMS_ITS | Encounter Summary ---
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
--- OUTSIDE RECORDS SUMMARY | 2025-05-12 22:23 | XMS_ITS | Encounter Summary ---
Author Organization [facility] Address [address] [place] [address] Care Team Providers Care Processing Technologist Name Role Phone Jeremiah Baker DO Primary Care Provider [phone] Encounter Details Date Type Department Care Team (Latest Contact Info) Description 03/11/2002 Outpatient Historical [facility] Scot Miller MD [address] [place] [address] BRONCHITIS NOS (Primary Dx); ACUTE SINUSITIS NOS Social History Tobacco Use Types Packs/Day Years Used Date Smoking Tobacco: Never Assessed Sex and Gender Information Value Date Recorded Sex Assigned at Not on file 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
== END 2025-05-12 22:45 | disposition left against medical advice (07) ==
LOC: ER 22:22
PROVIDERS: Emergency Provider Family Medicine; PCP Nurse Practitioner
DX: Z53.21 Procedure and treatment not carried out due to patient leaving prior to being seen by health care provider (principal)